=== PATIENT | male | born 1940 | race Caucasian/White ===

== ENCOUNTER 2016-12-07 20:23 | Emergency (ER) | payer MEDICARE, BC ==
[2016-12-07 20:38] VITALS: RESP 18; TEMP 97.6
[2016-12-07] MEDS ORDERED: LIDOCAINE BUFFERED 1% 50 ML SOL ONE (20:44)
[2016-12-07] MEDS ORDERED: LIDOCAINE BUFFERED 1% 50 ML SOL SC ONE (20:57)
[2016-12-07] MEDS ORDERED: TDAP VACCINE 0.5 ML SUS IM ONE ×2 (21:17→21:18)
[2016-12-07 21:32] VITALS: BP 139/49; PULSE 70; O2SAT 96
== END 2016-12-07 21:24 | disposition home or self-care (01) | DRG 605 ==
LOC: ED 20:23
DX: S61.210A Laceration without foreign body of right index finger without damage to nail, initial encounter (principal)
CPT/HCPCS: 12001; 90471; 90715; 99285; A6232